=== PATIENT | female | born 1955 | race Caucasian/White ===

== ENCOUNTER → 2016-10-22 | Outpatient (CLI) | payer OTHER ==
[~2016-10-22] MED LIST: AMLO1CAP PO; ASPI81TA2 PO; FURO-69 PO; POTA10CA PO; THYR30TA PO
--- NOTE | 2016-10-22 14:15 | KCIC ---
PROCEDURE MRI lumbar spine without contrast. HISTORY Degenerative disc disease. Leg pain bilaterally laterally while lying on right side. Low back pain intermittently for years. Symptoms have worsened in the last 3 weeks. No prior surgery. TECHNIQUE Sagittal T1, sagittal T2, sagittal STIR, axial T1, and axial T2 sequences are provided. COMPARISON None. FINDINGS There is 1-2 millimeters of retrolisthesis at L1-L2. There is endplate edema which appears degenerative from L1-L2 through L3-L4. There is mild marrow heterogeneity but no discrete worrisome marrow lesion. There are a few hemangiomas scattered throughout the lumbar spine. There is fatty replacement of the endplates which appears degenerative at the lumbosacral junction. There is diffuse disc desiccation. There is narrowing of disc height, greatest at L4-L5 and L5-S1. The conus medullaris is normal in signal intensity and in position. Subcutaneous edema is noted. The numbering system assumes 5 lumbar type vertebral bodies. Findings by individual level are as follows: T11-T12: There is a minimal disc bulge and facet hypertrophy without canal or foraminal compromise. T12-L1: There is a mild disc bulge without canal or foraminal compromise. L1-L2: Mild disc bulge and mild facet hypertrophy are noted. There is no canal stenosis. There is mild foraminal narrowing. L2-L3: Minimal disc osteophyte complex is noted with mild facet hypertrophy. There is minimal left foraminal narrowing L3-L4 disc osteophyte complex and mild facet and ligamentum flavum hypertrophy are noted. There is minimal canal stenosis. The midline AP diameter of the thecal sac is still 13 millimeters. There is mild left foraminal narrowing and minimal right L4-L5: Disc osteophyte complex is noted with moderate facet hypertrophy. There is mild ligamentum flavum hypertrophy. There is minimal canal stenosis. Midline AP diameter of the thecal sac is 13 millimeters. There is slight lateral recess narrowing on the right. Foraminal narrowing is mild. L5-S1: Disc bulge and facet hypertrophy are noted with minimal foraminal narrowing. IMPRESSION Mild degenerative disc disease and facet and ligamentum flavum hypertrophy are noted throughout the lumbar spine. There is no high-grade canal stenosis at any level. Electronically signed by: Winston Negron MD (October 22, 2016 14:13:56)
== END | disposition home or self-care (01) ==
LOC: KCIC MRI 12:01
DX: M51.36 Other intervertebral disc degeneration, lumbar region (principal)
CPT/HCPCS: 72148

== ENCOUNTER → 2017-03-22 | Outpatient (CLI) | payer OTHER ==
[~2017-03-22] MED LIST changes: +ASPI-630 PO; -ASPI81TA2 PO; -POTA10CA PO; +POTASSIUM CHLO10 MEQ PO
--- NOTE | 2017-03-22 11:05 | RAD ---
MRI Lumbar Spine without contrast History: Worsening low back pain with left leg radiculopathy Technique: Multiplanar, multi sequential noncontrast MR imaging was performed of the lumbar spine. Contrast: None Comparison: October 22, 2016 Findings: Lumbar vertebral body stature is maintained. There is negligible posterior subluxation L1 relative to L2. There is again diffuse heterogeneity of marrow signal. There is again multilevel fairly advanced degenerative disc disease variably L3-4, L5-S1, and L1-2 and to a somewhat lesser degree L2-3. There is persistent posterior and right lateral L1-2 endplate edema probably reactive/degenerative degenerative in etiology, no fluid in the intervertebral disc space. There are hemangiomas at multiple levels. Conus terminates at L1. Focus of fluid signal intensity in the visualized left pelvis could be in the bowel although adnexal cystic lesion not excluded. L1-L2: There is again disc osteophyte complex and mild to moderate facet hypertrophic change and buckling of the ligamentum flavum. Spinal canal is overall adequate. There is mild to moderate neural foramina compromise bilaterally. L2-L3: There is negligible disc osteophyte complex. Spinal canal is overall adequate. There is mild to moderate narrowing of the left neural foramen, right neural foramen adequate. L3-L4: There is again moderate to severe facet degenerative change, also left greater than right buckling of the ligamentum flavum. There is negligible disc osteophyte complex. Spinal canal is overall adequate. There is mild narrowing of the left neural foramen, right neural foramen adequate. L4-L5: There is again moderate buckling of the ligamentum flavum and facet hypertrophic change. There is minimal disc osteophyte complex in the inferior neural foramina. Spinal canal is overall adequate. There is mild the moderate left and mild right neural foramina compromise. L5-S1: There is moderate facet hypertrophic change. Spinal canal is adequate. There is mild narrowing of the right neural foramen, left neural foramen adequate. Impression: 1. Findings are similar compared with October 2016 exam. There is no new significant lumbar spinal stenosis. There is [id number] neural foramina compromise on the left at L2-3 and L4-5 and bilaterally at L1-2. There is multilevel advanced degenerative disc disease, multilevel mild spondylosis. There is persistent L1-2 endplate edema more likely to be reactive/degenerative in etiology. 2. Focus of fluid signal intensity in the visualized left pelvis could be in the bowel although adnexal cystic lesion not excluded. Electronically signed by: Darren Irvin MD (03/22/2017 11:01 AM) [id number]
== END | disposition home or self-care (01) ==
LOC: MRI 16:02
PROVIDERS: ATTEND Nurse Practitioner Family
DX: M51.16 Intervertebral disc disorders with radiculopathy, lumbar region (principal)
CPT/HCPCS: 72148